=== PATIENT | male | born 1935 | race Caucasian/White ===

== ENCOUNTER 2022-02-14 10:28 | Emergency (ER) | payer MEDICARE, BC ==
[~2022-02-14] VITALS: Ht 190.5 cm; Wt 117.0 kg
[2022-02-14 11:59] VITALS: BP 129/85
[2022-02-14 13:06] LABS: D-DIMER 0.27 MG/L FEU (0-0.50)
== END 2022-02-14 17:29 | disposition home or self-care (01) ==
LOC: ER 10:30
DX: M79.662 Pain in left lower leg (principal); R20.0 Anesthesia of skin
CPT/HCPCS: 36415; 85379; 85610; 93971; 99284